=== PATIENT | female | born 2000 | race Caucasian/White ===

== ENCOUNTER 2023-11-20 13:26 | Emergency (ER) | payer MEDICAID ==
[~2023-11-20] VITALS: Ht 167.6 cm; Wt 98.9 kg
[2023-11-20 13:27] VITALS: TEMP 98.2
[2023-11-20] MEDS ORDERED: LIDOcaine 1% 30ml preserv. free vial IJ ONE (13:50)
[2023-11-20] MEDS ORDERED: LIDOcaine/epinephrine/tetracaine TOPICAL sol 3 ML syringe TOP ONE (14:00)
[2023-11-20] MEDS: TETanus/Pertussis (Acell)/Diphther VAC/PF (Tdap-Adult) 0.5ml syringe IMVAC ONE (14:07)
[2023-11-20] MEDS ORDERED: LIDOcaine 2% jelly 6ml syringe ***for topical use only MM ONE (14:40)
[2023-11-20 14:51] VITALS: BP 134/76; PULSE 75; RESP 16; O2SAT 98
== END 2023-11-20 14:52 | disposition home or self-care (01) ==
LOC: ER 13:27
DX: S61.012A Laceration without foreign body of left thumb without damage to nail, initial encounter (principal); Z88.6 Allergy status to analgesic agent; Z88.8 Allergy status to other drugs, medicaments and biological substances; Z88.5 Allergy status to narcotic agent; W26.0XXA Contact with knife, initial encounter; Y93.89 Activity, other specified; Y92.89 Other specified places as the place of occurrence of the external cause; Y99.8 Other external cause status
CPT/HCPCS: 90471; 90715; 99283